=== PATIENT | male | born 1950 | race Caucasian/White ===

== ENCOUNTER 2018-01-04 07:07 | Outpatient (CLI) | payer MEDICARE, OTHER | END 2018-01-04 09:05 | LOC: D.OPS 07:07 | DX: K21.9 Gastro-esophageal reflux disease without esophagitis (principal) ==

== ENCOUNTER 2018-10-10 05:30 | Inpatient (IN) | payer MEDICARE, OTHER ==
[2018-10-09 11:39] LABS: HEMATOCRIT 41.4 % (42.0-54.0); HEMOGLOBIN 13.8 g/dL (13.5-17.5); MCH 28.3 pg (26.0-34.0); MCHC 33.3 g/dL (31.0-37.0); MEAN PLATELET VOLUME 9.2 fL (7.4-10.4); RBC 4.87 10x6/uL (4.20-6.10); RDW 12.9 % (11.5-14.5); WBC 6.5 10x3/uL (4.8-10.8)
[~2018-10-10] VITALS: Ht 243.8 cm; Wt 77.3 kg
[2018-10-10] MEDS ORDERED: HCTZ25 MG PO (06:19)
[2018-10-10] MEDS ORDERED: ZOCOR40 MG PO (06:19)
[2018-10-10] MEDS ORDERED: METOPROLOL TART50 MG PO (06:19)
[2018-10-10 06:26] VITALS: BP 117/82; BMI 13.4
[2018-10-10 06:34] VITALS: BP 117/82; BMI 13.4
--- NOTE | 2018-10-10 12:05 | NUR ---
FAMILY AT BEDSIDE. C/O PAIN 05/04 TO LEFT SHOULDER. MORPHINE 4MG IV ADMINISTERED PER ORDERS.
--- NOTE | 2018-10-10 14:00 | NUR ---
PT RESTING COMFORTABLY, RESPIRATIONS, EVEN, UNLABORED, NO ACUTE DISTRESS NOTED, WILL CONTINUE TO MONITOR.
--- NOTE | 2018-10-10 15:00 | NUR ---
PT RESTING COMFORTABLY, RESPIRATIONS EVEN UNLABORED, NO ACUTE DISTRESS NOTED, WILL CONTINUE TO MONITOR.
--- NOTE | 2018-10-10 16:00 | NUR ---
PT RESTING COMFORTABLY AT THIS TIME, RESPIRATIONS EVEN AND UNLABORED, NO ACUTE DISTRESS NOTED, WILL CONTINUE TO MONITOR.
--- NOTE | 2018-10-10 16:11 | NUR ---
PT LEAVING UNIT VIA WC AT THIS TIME
[2018-10-10 16:46] VITALS: BP 113/60; Ht 243.8 cm; Wt 77.3 kg
--- NOTE | 2018-10-10 16:47 | NUR ---
PT LEFT UNIT AND WAS TRANSFERRED TO [facility] SURGE ROOM 4 VIA WC AT [id number]
[2018-10-10 16:59] VITALS: BP 138/49
--- NOTE | 2018-10-10 17:58 | NUR ---
PATIENT AMBULATING IN HALLWAY. 500 FT, NO PROBLEMS. IV INTACT.
--- NOTE | 2018-10-10 18:58 | NUR ---
PATIENT SITTING UP IN BED EATING AT THIS TIME. IV INTACT. NO COMPLAINTS OR SIGNS OF DISTRESS. STATED HAS NOT VOIDED YET. WILL TRY TO AMBULATE AGAIN AND VOID AFTER FINISHED EATING. CALL LIGHT WITHIN REACH.
--- NOTE | 2018-10-10 20:00 | NUR ---
ASSESSMENT PER FLOWSHEET. IV PATENT LEFT WRIST OF LR AT 75C'S /HR SITE CLEAR. AMBULATED IN HALLWAY AD TORITO TOLERATED WELL. LAP SITES X5 TO ABDOMEN WITH S/S C/D/I. PT ATTEMPTS TO VOID UNSUCCESSFULLY.
[2018-10-10 20:08] VITALS: BP 127/40
--- NOTE | 2018-10-10 21:15 | NUR ---
AWAKE ALERT AMBULATING IN HALLWAYS WALKED 3 LAPS AROUND NURSE'S STATION
--- NOTE | 2018-10-10 23:16 | NUR ---
PT UNABLE TO VOID ABDOMEN DISTENDED IN AND OUT CATH DONE.
--- NOTE | 2018-10-10 23:21 | NUR ---
500CC'S SONIA COLORED URINE RETURNED WITH IN AND OUT CATH.
[2018-10-11 00:31] VITALS: BP 114/76
[2018-10-11 04:34] VITALS: BP 113/80
--- NOTE | 2018-10-11 06:19 | NUR ---
NPO FOR XRAY PROCEDURE. RESTING QUIETLY DENIES NEEDS.
[2018-10-11 06:22] LABS: BASOPHILS 0.1 % (0-2); EOSINOPHILS 0 % (0-7); HEMATOCRIT 35.7 % (42.0-54.0); HEMOGLOBIN 11.9 g/dL (13.5-17.5); IMMATURE GRANULOCYTES 0.4 % (0-5); LYMPHOCYTES 10.7 % (15-50); MCH 27.7 pg (26.0-34.0); MCHC 33.3 g/dL (31.0-37.0); MCV 83.2 fL (80.0-100.0); MEAN PLATELET VOLUME 9.8 fL (7.4-10.4); MONOCYTES 7.6 % (2-11); NEUTROPHILS 81.2 % (40-80); PLATELET COUNT 300 10x3/uL (130-400); RBC 4.29 10x6/uL (4.20-6.10); RDW 12.9 % (11.5-14.5)
[2018-10-11 06:36] LABS: WBC 13.1 10x3/uL (4.8-10.8)
[2018-10-11 07:04] LABS: ANION GAP 12.5 mmol/L (8-16); BILIRUBIN - TOTAL 0.46 mg/dL (0.2-1.3); CALCIUM 8.8 mg/dL (8.5-10.1); CARBON DIOXIDE 27.1 mmol/L (21.0-32.0); CREATININE - SERUM 1.5 mg/dL (0.6-1.3); POTASSIUM - SERUM 3.6 mmol/L (3.5-5.1); PROTEIN - SERUM 6.4 g/dL (6.4-8.2)
[2018-10-11] MEDS ORDERED: ZOFRAN ODT4 MG/UDTAB PO (08:24)
[2018-10-11] MEDS ORDERED: HYDROCODON-ACE1 EAC7 PO (08:24)
[2018-10-11 10:55] VITALS: BP 114/78
--- NOTE | 2018-10-11 11:03 | NUR ---
PATIENT IV REMOVED WITH CATH TIP INTACT. REFUSES IV MEDS AT THIS TIME. STATED HE ONLY WANTS HIS LOVENOX. FAMILY AT BEDSIDE. CALL LIGHT WITHN REACH. AWAITING DC PAPERS.
--- NOTE | 2018-10-11 11:35 | NUR ---
PATIENT RECIEVED DISCHARGE INSTRUCTIONS. VERBALIZED UNDERSTANDING. NO QUESTIONS AT THIS TIME. LOVENOX SHOT GIVEN. PATIENT AND AMBULATED DOWN TO PRIVATE VEHICLE WITH PERSONAL BELONGINGS. REFUSED WC AT THIS TIME.
== END 2018-10-11 11:35 | disposition home or self-care (01) | DRG 328 ==
LOC: D.MS 05:30 → D.OPS 05:30 → D.PAN 08:00 → D.OPS 08:00 → D.MS 10:19 → D.OPS 16:09 → D.MS 16:12 → D.OPS 10-11 11:35 → D.MS 10-11 11:35
PROVIDERS: Anesthesiology; ADMIT Surgery
PROC: 0BQT4ZZ Repair Diaphragm, Percutaneous Endoscopic Approach (ICD-10-PCS; principal; 2018-10-10 08:15)
PROC: 0DV Gastrointestinal System, Restriction (ICD-10-PCS; 2018-10-10 08:15)
DX: K44.9 Diaphragmatic hernia without obstruction or gangrene (principal); K21.0 Gastro-esophageal reflux disease with esophagitis